=== PATIENT | female | born 1965 | race Caucasian/White ===

== ENCOUNTER → 2017-06-25 | Outpatient (CLI) | payer OTHER ==
--- NOTE | 2017-06-26 10:45 | MM ---
Reason for exam: screening (asymptomatic). Last mammogram was performed 1 year ago. History: Family history of breast cancer in maternal cousin at age 50. Benign excisional biopsy of the left breast, 2003. Physical Findings: A clinical breast exam by your physician is recommended on an annual basis and results should be correlated with mammographic findings. MG Screening Mammo w CAD Bilateral CC and MLO view(s) were taken. Prior study comparison: June 15, 2016, bilateral MG screening mammo w CAD. November 07, 2015, right breast MG diagnostic mammo RT w CAD. The breast tissue is heterogeneously dense. This may lower the sensitivity of mammography. No significant changes when compared with prior studies. ASSESSMENT: Benign, BI-RAD 2 RECOMMENDATION: Routine screening mammogram of both breasts in 1 year.
== END | disposition home or self-care (01) ==
LOC: RADMAMWWP 11:05
PROVIDERS: ATTEND Family Medicine
DX: Z12.31 Encounter for screening mammogram for malignant neoplasm of breast (principal)

== ENCOUNTER → 2018-07-29 | Outpatient (CLI) | payer BC ==
[2018-07-30 04:51] LABS: Thyroid Peroxidase Antibodies 302.1 U/mL (0.0-60.0)
[2018-07-30 06:14] LABS: ACTH 13.8 pg/mL (0.00-45.99)
== END | disposition home or self-care (01) ==
LOC: LABWHC1 15:13
PROVIDERS: ATTEND Internal Medicine Endocrinology, Diabetes & Metabolism
DX: E04.1 Nontoxic single thyroid nodule (principal); R53.83 Other fatigue
CPT/HCPCS: 36415; 82024; 82533; 82607; 84146; 84439; 84443; 84481; 86376

== ENCOUNTER → 2018-10-30 | Outpatient (CLI) | payer BC ==
--- NOTE | 2018-10-30 17:39 | XR ---
Right shoulder HISTORY: Pain 3 views of the right shoulder There is mild marginal spurring present at the glenohumeral joint. Alignment and bone mineralization relatively maintained. Suspect a bone island in the metaphyseal region of the right humerus. Arthropa thy present at the acromioclavicular joint. Right lung apex as visualized is normal. No fracture or d islocation. IMPRESSION: Osteoarthritis.
== END | disposition home or self-care (01) ==
LOC: RADXRMAIN 15:11
PROVIDERS: ATTEND Family Medicine
DX: M19.011 Primary osteoarthritis, right shoulder (principal)

== ENCOUNTER → 2019-03-10 | Outpatient (CLI) | payer BC ==
--- NOTE | 2019-03-12 12:44 | P.ARTDOP ---
Arterial Doppler LOWER EXTREMITY ARTERIAL DOPPLER: DATE OF SERVICE: 03/10/2019 Reason for study: Left calf pain. Doppler waveforms: Multiphasic bilaterally throughout. Pulse volume recording: []. Pressure gradients: None. Ankle-brachial indices: 0.97 on the right and greater than 1 on the left. Toe pressures: [] on the right, [] on the left Impression: Normal study.
== END | disposition home or self-care (01) ==
LOC: RADUSWWP 06:54
PROVIDERS: ATTEND Family Medicine
DX: I73.9 Peripheral vascular disease, unspecified (principal)
CPT/HCPCS: 93922; 93923

== ENCOUNTER → 2019-08-17 | Outpatient (CLI) | payer BC ==
--- NOTE | 2019-08-17 13:22 | MM ---
Reason for exam: screening (asymptomatic). Last mammogram was performed 1 year and 1 month ago. History: Family history of breast cancer in maternal cousin at age 50. Benign excisional biopsy of the left breast, 2003. Physical Findings: A clinical breast exam by your physician is recommended on an annual basis and results should be correlated with mammographic findings. MG 3D Screening Mammo W/Cad Bilateral CC and MLO view(s) were taken. Prior study comparison: July 15, 2018, mammogram, performed at [facility]. July 03, 2018, mammogram, performed at [facility]. June 25, 2017, bilateral MG screening mammo w CAD. June 15, 2016, bilateral MG screening mammo w CAD. The breast tissue is heterogeneously dense. This may lower the sensitivity of mammography. No suspicious abnormality on the left. Right upper outer quadrant posterior depth architectural distortion. ASSESSMENT: Incomplete: need additional imaging evaluation, BI-RAD 0 RECOMMENDATION: Special view mammogram of the right breast. If lesion persists on supplemental views, image directed ultrasound is recommended. [facility] will attempt to contact patient to return for supplemental views and ultrasound if indicated.
== END ==
LOC: RADMAMWWP 07:03
PROVIDERS: ATTEND Family Medicine
DX: Z12.31 Encounter for screening mammogram for malignant neoplasm of breast (principal)
CPT/HCPCS: 77063; 77067

== ENCOUNTER → 2019-08-31 | Outpatient (CLI) | payer BC ==
--- NOTE | 2019-09-03 09:46 | MM ---
Reason for exam: additional evaluation requested from abnormal screening. Last mammogram was performed less than 1 month ago. History: Family history of breast cancer in maternal cousin at age 50. Benign excisional biopsy of the left breast, 2004. Physical Findings: Nurse did not find any significant physical abnormalities on exam. MG 3D Work Up W/Cad RT Spot compression CC, spot compression MLO, and LM view(s) were taken of the right breast. Prior study comparison: August 17, 2019, bilateral MG 3d screening mammo w/cad. July 15, 2018, mammogram, performed at [facility]. The breast tissue is heterogeneously dense. This may lower the sensitivity of mammography. No suspicious abnormality. Right upper outer quadrant focal asymmetry is stable back to 2009 and has been evaluated in the past back to 2009. These results were verbally communicated with the patient and result sheet given to the patient on 08/31/19. ASSESSMENT: Benign, BI-RAD 2 RECOMMENDATION: Return to routine screening mammogram schedule for both breasts.
== END | disposition home or self-care (01) ==
LOC: RADMAMWWP 14:12
PROVIDERS: ATTEND Family Medicine
DX: R92.8 Other abnormal and inconclusive findings on diagnostic imaging of breast (principal)
CPT/HCPCS: 77061; 77065

== ENCOUNTER → 2020-02-04 | Outpatient (CLI) | payer BC ==
--- NOTE | 2020-02-04 11:52 | CT ---
EXAMINATION TYPE: CT abdomen pelvis w con DATE OF EXAM: 02/04/2020 COMPARISON: None INDICATION: LUQ pain DLP: 1037.7 mGycm, Automated exposure control for dose reduction was used. CONTRAST: 100 mL of Isovue 300. Study performed with Oral Contrast TECHNIQUE: Axial images were obtained from above the diaphragm to the pubic rami in the axial plane a t 5 mm thick sections. Reconstructed images are reviewed on the computer in the coronal plane. FINDINGS: Limited CT sections are obtained the lung bases. The lung bases are clear. CT ABDOMEN: Liver: Normal Spleen: Normal Pancreas: Normal Adrenal glands: The adrenal glands are normal. Gallbladder: Several small gallstones are present. Kidneys: No masses are evident. No hydronephrosis is present. No cysts are present. Delayed images were obtained through the kidneys, which remain unremarkable. Aorta: Normal Inferior vena cava: Normal. CT PELVIS: Within the left upper quadrant the jejunal loops do not have significant contrast. Some wall thickeni ng cannot be excluded. Of the mid and distal jejunum as well as ileum have a normal appearance. Colon is unremarkable. Oral contrast extends to the transverse colon. There are loops of bowel which are incompletely distended or lack oral contrast limiting their evaluation. Appendix: Normal as visualized. Urinary bladder: Normal. Genitourinary structures: Uterus and adnexa appear normal. Couple small follicles may be on the right ovary. Osseous structures: No suspicious lytic or sclerotic lesions. IMPRESSIONS: 1. Wall thickening of the proximal jejunum is not excluded. This section of bowel lack significant c ontrast limiting its evaluation. Consider mild jejunitis.
== END | disposition home or self-care (01) ==
LOC: RADCTMAIN 08:34
PROVIDERS: ATTEND Family Medicine
DX: R10.9 Unspecified abdominal pain (principal); R16.1 Splenomegaly, not elsewhere classified
CPT/HCPCS: 74177; Q9967

== ENCOUNTER → 2020-02-17 | Outpatient (CLI) | payer BC ==
--- NOTE | 2020-02-17 10:00 | US ---
EXAMINATION TYPE: US extremity nonvasc mass LT DATE OF EXAM: 02/17/2020 COMPARISON: NONE CLINICAL HISTORY: 54-year-old female R22.31 Localized swelling, mass and lump, left wrist. Technique: Targeted scanning along the anterior aspect of the left wrist at the palpable site. Images on the contralateral side for comparison purposes. FINDINGS: Risk Management Professional notes: Patient stated has approximately 3 mobile palpables left wrist and possibly one on right wrist. 2 hypoechoic, superficial oval masses are seen at area of concern at left wrist with larger nodule me asuring 0.4 x 0.3 x 0.1cm. This has an ovoid appearance and possible tails extending from either side . IMPRESSION: 2 subtle hypoechoic areas superficially within the anterior left wrist seem to correspond to the palp able sites but the etiology is unclear. One is oval and measures 4 mm long with possible tails extend ing from either side. The other is even smaller. A neuroma or small nerve sheath tumor/schwannoma is a possibility. Recommend clinical follow-up. If any enlargement is noted, the area can be rescanned.
== END | disposition home or self-care (01) ==
LOC: RADUSWWP 08:05
PROVIDERS: ATTEND Family Medicine
DX: R22.32 Localized swelling, mass and lump, left upper limb (principal)

== ENCOUNTER → 2020-02-25 | Outpatient (CLI) | payer BC ==
--- NOTE | 2020-02-25 14:06 | US ---
EXAMINATION TYPE: US thyroid st tissue head/neck DATE OF EXAM: 02/25/2020 COMPARISON: NONE CLINICAL HISTORY: R94.6 abn thyroid labs. Abnormal thyroid labs, on thyroid meds GLAND SIZE: Right Lobe: 4.9 x 1.5 x 1.5 cm Overall Parenchyma: heterogenous Left Lobe: 4.8 x 1.5 x 1.3 cm Overall Parenchyma: heterogeneous Isthmus Thickness: 0.5 cm NODULES RIGHT: # of nodules measured on right: 0 LEFT: # of nodules measured on left: 0 ISTHMUS: # of nodules measured in the isthmus: 0 Bilateral neck scanned, no evidence of lymphadenopathy. IMPRESSION: 1. No suspicious nodules. There is some heterogeneity diffusely throughout the bilateral thyroid lobe s.
== END | disposition home or self-care (01) ==
LOC: RADUSWWP 13:26
PROVIDERS: ATTEND Family Medicine
DX: R94.6 Abnormal results of thyroid function studies (principal)
CPT/HCPCS: 76536

== ENCOUNTER → 2020-09-09 | Outpatient (CLI) | payer BC ==
--- NOTE | 2020-09-09 12:21 | MM ---
Reason for exam: screening (asymptomatic). Last mammogram was performed 1 year ago. History: Patient is postmenopausal. Family history of breast cancer in maternal cousin at age 50. Benign excisional biopsy of the left breast, 2003. Took hormonal contraceptives for 5 years 3 months. Physical Findings: A clinical breast exam by your physician is recommended on an annual basis and results should be correlated with mammographic findings. MG 3D Screening Mammo W/Cad Bilateral CC and MLO view(s) were taken. Prior study comparison: August 31, 2019, right breast MG 3d work up w/cad RT. August 17, 2019, bilateral MG 3d screening mammo w/cad. There are scattered fibroglandular densities. There is no discrete abnormality. ASSESSMENT: Negative, BI-RAD 1 RECOMMENDATION: Routine screening mammogram of both breasts in 1 year.
== END | disposition home or self-care (01) ==
LOC: RADMAMWWP 06:57
PROVIDERS: ATTEND Family Medicine
DX: Z12.31 Encounter for screening mammogram for malignant neoplasm of breast (principal); Z80.3 Family history of malignant neoplasm of breast
CPT/HCPCS: 77063; 77067

== ENCOUNTER → 2021-04-12 | Outpatient (CLI) | payer BC ==
--- NOTE | 2021-04-13 09:37 | MM ---
Reason for exam: clinical finding. Last mammogram was performed 7 months ago. History: Patient is postmenopausal. Family history of breast cancer in maternal cousin at age 50. Benign excisional biopsy of the left breast, 2003. Took hormonal contraceptives for 5 years 3 months. Physical Findings: Nurse did not find any significant physical abnormalities on exam. MG 3D Diag Mammo W/Cad [facility]OS[facility] Bilateral CC and MLO view(s) were taken. Prior study comparison: September 09, 2020, bilateral MG 3d screening mammo w/cad. August 17, 2019, bilateral MG 3d screening mammo w/cad. July 03, 2018, mammogram, performed at [facility]. There are scattered fibroglandular densities. No significant new findings when compared with previous films. These results were verbally communicated with the patient and result sheet given to the patient on 04/12/21. ASSESSMENT: Benign, BI-RAD 2 RECOMMENDATION: Routine screening mammogram of both breasts in 1 year.
--- NOTE | 2021-04-13 09:40 | USB ---
Reason for exam: clinical finding. History: Patient is postmenopausal. Family history of breast cancer in maternal cousin at age 50. Benign excisional biopsy of the left breast, 2003. Took hormonal contraceptives for 5 years 3 months. US Breast Axilla RT Right breast axilla ultrasound demonstrates a 0.6cm oval lymph node at the axilla. Left breast axilla ultrasound demonstrates a 0.9cm oval lymph node at the axilla. These results were verbally communicated with the patient and result sheet given to the patient on 04/12/21. ASSESSMENT: Benign, BI-RAD 2 RECOMMENDATION: Routine screening mammogram of both breasts in 1 year. Manage patient on a clinical basis.
--- NOTE | 2021-04-13 09:47 | USB ---
Reason for exam: clinical finding. History: Patient is postmenopausal. Family history of breast cancer in maternal cousin at age 50. Benign excisional biopsy of the left breast, 2003. Took hormonal contraceptives for 5 years 3 months. US Breast Axilla LT Right breast axilla ultrasound demonstrates a 0.6cm oval lymph node at the axilla. Left breast axilla ultrasound demonstrates a 0.9cm oval lymph node at the axilla. These results were verbally communicated with the patient and result sheet given to the patient on 04/12/21. ASSESSMENT: Benign, BI-RAD 2 RECOMMENDATION: Routine screening mammogram of both breasts in 1 year. Manage patient on a clinical basis.
== END | disposition home or self-care (01) ==
LOC: RADMAMWWP 14:17
PROVIDERS: ATTEND Family Medicine
DX: N64.89 Other specified disorders of breast (principal); R59.0 Localized enlarged lymph nodes; Z78.0 Asymptomatic menopausal state; Z80.3 Family history of malignant neoplasm of breast
CPT/HCPCS: 77062; 77066

== ENCOUNTER → 2021-04-17 | Outpatient (CLI) | payer BC ==
--- NOTE | 2021-04-17 08:43 | US ---
EXAMINATION TYPE: US abdomen complete DATE OF EXAM: 04/17/2021 COMPARISON: None CLINICAL HISTORY: 56-year-old female E80.7 Disorder of bilirubin metabolism. Left flank pain, history of cholelithiasis TECHNIQUE: Multiple sonographic images of the abdomen are obtained. FINDINGS: EXAM MEASUREMENTS: Liver Length: 15.0 cm Gallbladder Wall: 0.2 cm CBD: 0.5 cm Spleen: 11.4 cm Right Kidney: 9.7 x 3.1 x 4.2 cm Left Kidney: 9.3 x 3.9 x 3.9 cm Pancreas: Only portions of the pancreatic head and neck are visualized. The body and tail are obscur ed by bowel gas shadowing. Liver: wnl Gallbladder: cholelithiasis there is no abnormal distention, wall thickening, pericholecystic fluid, or shadowing calculi. Evidence for sonographic Ardon's sign: no CBD: visualized portions wnl, limited by overlying bowel gas. Previously measured up to 6 mm. Spleen: wnl Right Kidney: 0.4cm echogenic focus superior pole Left Kidney: wnl Upper IVC: wnl Abd Aorta: wnl IMPRESSION: 1. Redemonstrated uncomplicated cholelithiasis. 2. No biliary ductal dilatation. 3. A 4 mm cortical echogenic focus upper pole right kidney could represent some cortical scarring or a nonobstructive calculus.
== END | disposition home or self-care (01) ==
LOC: RADUSWWP 07:25
PROVIDERS: ATTEND Family Medicine
DX: K80.20 Calculus of gallbladder without cholecystitis without obstruction (principal)
CPT/HCPCS: 76700

== ENCOUNTER → 2021-06-30 | Outpatient (CLI) | payer BC ==
--- NOTE | 2021-06-30 11:43 | NM ---
EXAMINATION TYPE: NM hepatobiliary w EF DATE OF EXAM: 06/30/2021 COMPARISON: Ultrasound 04/17/2021 HISTORY: 56-year-old female R7 6.1, splenomegaly, diarrhea, elevated LFTs, gallstones, abdominal pain , decreased appetite. TECHNIQUE: After the intravenous administration of 5.02 mCi Tc 99m Mebrofenin hepatobiliary scintigra phy is performed. Immediate images post injection. FINDINGS: There is satisfactory initial accumulation of tracer by the liver. The gallbladder is visualized wit hin 12 minutes. The small bowel activity is noted after administration of 8 ounces of oral Ensure fo llowing 60 minutes. Gallbladder ejection fraction is calculated at 9 %, decreased. IMPRESSION: 1. No scintigraphic evidence for acute cholecystitis. 2. However, gallbladder ejection fraction is diminished at 9%. Findings can be seen with chronic chol ecystitis or biliary dyskinesia.
== END | disposition home or self-care (01) ==
LOC: RADNMMAIN 06:56
PROVIDERS: ATTEND Family Medicine
DX: R16.1 Splenomegaly, not elsewhere classified (principal); R10.9 Unspecified abdominal pain; R79.89 Other specified abnormal findings of blood chemistry
CPT/HCPCS: 78226; A9537

== ENCOUNTER → 2021-07-19 | Outpatient (CLI) | payer BC ==
--- NOTE | 2021-07-24 10:16 | CT ---
EXAMINATION TYPE: CT abdomen pelvis wo con DATE OF EXAM: 07/19/2021 COMPARISON: 02/04/2020 CT abdomen pelvis. Abdominal ultrasound 04/17/2021. HISTORY: left sided abdominal pain CT DLP: 755.6 mGycm Automated exposure control for dose reduction was used. TECHNIQUE: Helical acquisition of images was performed from the lung bases through the pelvis. CONTRAST: Performed without oral or intravenous contrast. Lack of contrast limits evaluation of abdominal pelvi c viscera and vasculature. FINDINGS: LUNG BASES: Normal. LIVER: Normal attenuation and size. BILIARY SYSTEM: Cholelithiasis. PANCREAS: No peripancreatic stranding or fluid collection. SPLEEN: Not enlarged. ADRENALS: Normal. KIDNEYS: No hydronephrosis or urolithiasis. BOWEL: No obstruction or thickening. There is mild nonspecific small bowel feces sign of the left up per quadrant proximal jejunum. PERITONEUM: No pneumoperitoneum. No free fluid. LYMPH NODES: No lymphadenopathy. Nonenlarged mesenteric lymph nodes near the mesenteric root. PELVIS: Unremarkable. VASCULATURE: No abdominal aortic aneurysm. MUSCULOSKELETAL: Degenerative changes of the spine. IMPRESSION: 1. Mild nonspecific small bowel feces sign of the left upper quadrant proximal jejunum. There is no bowel obstruction, thickening, or acute inflammatory stranding. Findings can be seen with slow transi t or bacterial overgrowth. 2. Cholelithiasis.
== END | disposition home or self-care (01) ==
LOC: RADCTMAIN 17:47
PROVIDERS: ATTEND Family Medicine
DX: K63.89 Other specified diseases of intestine (principal); K80.20 Calculus of gallbladder without cholecystitis without obstruction
CPT/HCPCS: 74176

== ENCOUNTER → 2021-12-18 | Outpatient (CLI) | payer BC ==
--- NOTE | 2021-12-20 10:36 | MM ---
Reason for exam: screening (asymptomatic). Last mammogram was performed 8 months ago. History: Patient is postmenopausal. Family history of breast cancer in maternal cousin at age 50. Benign excisional biopsy of the left breast, 2003. Took hormonal contraceptives for 5 years 3 months. Physical Findings: A clinical breast exam by your physician is recommended on an annual basis and results should be correlated with mammographic findings. MG 3D Screening Mammo W/Cad Bilateral CC and MLO view(s) were taken. Prior study comparison: April 12, 2021, bilateral MG 3d diag mammo w/cad [facility]. September 09, 2020, bilateral MG 3d screening mammo w/cad. August 17, 2019, bilateral MG 3d screening mammo w/cad. There are scattered fibroglandular densities. Finding: There is an equal, spiculated architectural distortion in the upper quadrant, middle position of the right breast on MLO view, not on tomosynthesis, likely summation. ASSESSMENT: Probably benign, BI-RAD 3 RECOMMENDATION: Follow-up diagnostic mammogram of the right breast in 6 months.
== END | disposition home or self-care (01) ==
LOC: RADMAMWWP 07:13
PROVIDERS: ATTEND Family Medicine
DX: Z12.31 Encounter for screening mammogram for malignant neoplasm of breast (principal); Z78.0 Asymptomatic menopausal state; Z80.3 Family history of malignant neoplasm of breast
CPT/HCPCS: 77063; 77067

== ENCOUNTER → 2022-05-16 | Outpatient (CLI) | payer BC ==
--- NOTE | 2022-05-16 14:30 | CA ---
Transthoracic Echo Report Name: Ingrid Burleson Age: 57 Gender: F : 1965 Exam Date: 05/16/2022 08:33 Exam Location: [facility] Ht (in): 62 Wt (lb): 186 Ordering Physician: Brady Machado MD Attending/Referring Phys: Flake Cutter Operator Scarlett Richard RDCS Procedure CPT: Indications: r42 vertigo Cardiac Hx: Technical Quality: Fair Contrast 1: Total Dose (mL): Contrast 2: Total Dose (mL): MEASUREMENTS (Male / Female) Normal Values 2D ECHO LV Diastolic Diameter PLAX 3.8 cm 4.2 - 5.9 / 3.9 - 5.3 cm LV Systolic Diameter PLAX 2.8 cm IVS Diastolic Thickness 1.2 cm 0.6 - 1.0 / 0.6 - 0.9 cm LVPW Diastolic Thickness 0.8 cm 0.6 - 1.0 / 0.6 - 0.9 cm LV Relative Wall Thickness 0.5 RV Internal Dim ED PLAX 2.8 cm LA Volume 50.4 cm??? 18 - 58 / 22 - 52 cm??? M-MODE Aortic Root Diameter MM 2.9 cm LA Systolic Diameter MM 2.8 cm LA Ao Ratio MM 1.0 AV Cusp Separation MM 1.6 cm DOPPLER AV Peak Velocity 127.1 cm/s AV Peak Gradient 6.5 mmHg LVOT Peak Velocity 108.9 cm/s LVOT Peak Gradient 4.7 mmHg MV Area PHT 3.2 cm??? Mitral E Point Velocity 89.9 cm/s Mitral A Point Velocity 75.6 cm/s Mitral E to A Ratio 1.2 MV Deceleration Time 238.1 ms MV E' Velocity 6.1 cm/s Mitral E to MV E' Ratio 14.7 TR Peak Velocity 267.5 cm/s TR Peak Gradient 28.6 mmHg Right Ventricular Systolic Press 33.6 mmHg FINDINGS Left Ventricle Mildly increased left ventricular wall thickness. Normal Left ventricular size, systolic function with no obvious regional wall motion abnormalities. Normal Left ventricular diastolic filling pattern. Left ventricular ejection fraction is estimated at 55 %. Right Ventricle Normal right ventricular size and function. Right ventricular systolic pressure within normal limits. Right Atrium Normal right atrial size. Left Atrium Normal left atrial size. No evidence for an atrial septal defect. Mitral Valve Structurally normal mitral valve. Mild mitral regurgitation. Aortic Valve Trileaflet aortic valve. No aortic valve stenosis or regurgitation. Tricuspid Valve Structurally normal tricuspid valve. Mild tricuspid regurgitation. Pulmonic Valve Structurally normal pulmonic valve. Trace pulmonic regurgitation. Pericardium No pericardial effusion. Aorta Normal size aortic root and proximal ascending aorta. CONCLUSIONS Normal LV size and systolic function Previewed by: Dr. Travis Henry MD (Electronically Signed) Final Date: 16 May 2022 12:01
== END | disposition home or self-care (01) ==
LOC: RADECHMAIN 08:21
PROVIDERS: ATTEND Family Medicine
DX: I08.1 Rheumatic disorders of both mitral and tricuspid valves (principal)
CPT/HCPCS: 93306

== ENCOUNTER → 2023-01-23 | Outpatient (CLI) | payer BC ==
--- NOTE | 2023-01-23 13:26 | MM ---
Reason for Exam: Additional evaluation requested from prior study. Last mammogram was performed 1 year(s) and 1 month(s) ago. Patient History: Menarche at age 15. First Full-Term at age 25. Postmenopausal. Hormonal Contraceptives for 5 years, 3 months. 2004, Benign Excisional Biopsy on the left side. Maternal cousin had breast cancer, age 50. Risk Values: Meghan 5 year model risk: 1.2%. NCI Lifetime model risk: 7.8%. Prior Study Comparison: 07/03/2018 Screening Mammogram, [facility]. 09/09/2020 Bilateral Screening Mammogram, [facility]. 04/12/2021 Bilateral Diagnostic Mammogram, [facility]. 12/18/2021 Bilateral Screening Mammogram, [facility]. Tissue Density: The breast tissue is heterogeneously dense. This may lower the sensitivity of mammography. Findings: Analyzed By CAD. Benign-appearing Bilateral axillary lymph nodes are present. No suspicious new mass or distortion in either breast. Overall Assessment: Negative, BI-RAD 1 Management: Screening Mammogram of both breasts in 1 year. . Results were given to the patient verbally at the time of exam. Patient should continue monthly self-breast exams. A clinical breast exam by your physician is recommended on an annual basis. This exam should not preclude additional follow-up of suspicious palpable abnormalities. Note on Meghan scores and lifetime risk: 1. A Meghan score greater than 3% is considered moderate risk. If this is the case, consider specialist referral to assess eligibility for a risk reducing agent. 2. If overall lifetime risk for the development of breast cancer is 20% or higher, the patient may qualify for future screening with alternating mammogram and breast MRI. Electronically signed and approved by: Stanley Oliver M.D.
== END | disposition home or self-care (01) ==
LOC: RADMAMWWP 12:53
PROVIDERS: ATTEND Family Medicine
DX: R92.8 Other abnormal and inconclusive findings on diagnostic imaging of breast (principal); R59.0 Localized enlarged lymph nodes; Z78.0 Asymptomatic menopausal state; Z80.3 Family history of malignant neoplasm of breast
CPT/HCPCS: 77062; 77066

== ENCOUNTER → 2023-05-02 | Outpatient (CLI) | payer BC ==
--- NOTE | 2023-05-02 09:25 | US ---
EXAMINATION TYPE: US kidneys/renal and bladder DATE OF EXAM: 05/02/2023 COMPARISON: US 04/17/2021, CT 07/19/2021 CLINICAL INDICATION: Female, 58 years old with history of R94.4 abn renal function; Abnormal renal fu nction. EXAM MEASUREMENTS: Right Kidney: 9.8 x 5.1 x 3.9 cm Left Kidney: 10.1 x 4.9 x 3.6 cm Right Kidney: Hyperechoic focus seen upper pole: 0.4 x 0.4 x 0.5 cm. Dilated renal pelvis was not p resent after patient voided*, appears wnl post-void. Left Kidney: Limited visibility of lower pole. Bladder: Appears wnl Bilateral Jets seen: Yes No hydronephrosis. No left nephrolithiasis. Right superior pole echogenic focus without shadowing or twinkle artifact measuring up to 0.5 cm. No internal color flow. Corticomedullary differentiation is maintained bilaterally. Urinary bladder is unremarkable. Bilateral ureteral jets identified. IMPRESSION: 1. No hydronephrosis. 2. Echogenic nonshadowing focus within the superior pole of the right kidney which may represent an a ngiomyolipoma versus other etiologies. Follow-up ultrasound in 6 months is recommended to assess for stability.
== END | disposition home or self-care (01) ==
LOC: RADUSWWP 09:51
PROVIDERS: ATTEND Family Medicine
DX: R94.4 Abnormal results of kidney function studies (principal)
CPT/HCPCS: 76770

== ENCOUNTER → 2025-03-26 | Outpatient (CLI) | payer BC ==
--- NOTE | 2025-03-26 11:18 | MM ---
Reason for Exam: Screening (asymptomatic). Last mammogram was performed 1 year(s) and 2 month(s) ago. Patient History: Menarche at age 15. First Full-Term at age 25. Postmenopausal. Currently using Progesterone, starting at age 59. Hormonal Contraceptives for 5 years, 3 months. 2003, Benign Excisional Biopsy on the left side. Maternal cousin had breast cancer, age 50. Risk Values: Meghan 5 year model risk: 1.3%. NCI Lifetime model risk: 7.2%. Prior Study Comparison: 12/18/2021 Bilateral Screening Mammogram, [facility]. 01/23/2023 Bilateral MG 3D diag mammo w/cad [facility], [facility]. 01/28/2024 Bilateral MG 3D screening mammo w/cad, [facility]. Tissue Density: There are scattered areas of fibroglandular density. Findings: Analyzed By CAD. Right breast: There is no suspicious group of microcalcifications or new suspicious mass. Left breast: There is no suspicious group of microcalcifications or new suspicious mass. Overall Assessment: Negative, BI-RAD 1 Management: Screening Mammogram of both breasts in [address] [facility] will attempt to contact patient to return for supplemental views and ultrasound if indicated. Patient should continue monthly self-breast exams. A clinical breast exam by your physician is recommended on an annual basis. This exam should not preclude additional follow-up of suspicious palpable abnormalities. Note on Meghan scores and lifetime risk: 1. A Meghan score greater than 3% is considered moderate risk. If this is the case, consider specialist referral to assess eligibility for a risk reducing agent. 2. If overall lifetime risk for the development of breast cancer is 20% or higher, the patient may qualify for future screening with alternating mammogram and breast MRI. [facility], , 03/26/2025 11:15 AM. Electronically signed and approved by: Tavo Sullivan DO
== END | disposition home or self-care (01) ==
LOC: RADMAMWWP 08:25
PROVIDERS: ATTEND Family Medicine
DX: Z12.31 Encounter for screening mammogram for malignant neoplasm of breast (principal); R92.323 Mammographic fibroglandular density, bilateral breasts; Z78.0 Asymptomatic menopausal state; Z80.3 Family history of malignant neoplasm of breast; Z92.0 Personal history of contraception
CPT/HCPCS: 77063; 77067

== ENCOUNTER → 2025-03-30 | Outpatient (CLI) | payer BC ==
[2025-03-30 10:13] LABS: HCT 42.4 % (37.2-46.3); HGB 13.9 g/dL (12.0-15.0); MCH 30.0 pg (27.0-32.0); MCHC 32.8 g/dL (32.0-37.0); MCV 91.4 FL (80.0-97.0); NRBC Per 100 WBC 0 X 10*3/uL (0.00-0.01); Platelet Count 190 X 10*3/uL (140-440); RBC 4.64 X 10*6/uL (4.10-5.20); RDW 12.5 % (11.5-14.5); WBC 4.42 X 10*3/uL (4.50-10.00)
[2025-03-30 10:34] LABS: ALT 14 U/L (8-44); AST 25 U/L (13-35); Albumin 4.5 g/dL (3.8-4.9); Albumin/Globulin Ratio 1.61 Ratio (1.60-3.17); Alkaline Phosphatase 103 U/L (41-126); Anion Gap 14.00 mmol/L (4.00-12.00); BUN/Creat Ratio 12.90 Ratio (12.00-20.00); Blood Urea Nitrogen 12.9 mg/dL (9.0-27.0); Calcium 9.8 mg/dL (8.7-10.3); Carbon Dioxide 25.0 mmol/L (21.6-31.8); Chloride 111 mmol/L (96-109); Globulin 2.8 g/dL (1.6-3.3); Glucose 102 mg/dL (70-110); Potassium 3.9 mmol/L (3.5-5.5); Sodium 150 mmol/L (135-145); T4, Free (Free Thyroxine) 0.80 ng/dL (0.80-1.80); Total Protein 7.3 g/dL (6.2-8.2)
== END | disposition home or self-care (01) ==
LOC: LABWHC1 07:16
PROVIDERS: ATTEND Family Medicine
DX: I10 Essential (primary) hypertension (principal); E03.9 Hypothyroidism, unspecified; E78.5 Hyperlipidemia, unspecified
CPT/HCPCS: 36415; 80053; 84439; 84443; 84480; 85027